=== PATIENT | male | born 1990 | race Caucasian/White ===

== ENCOUNTER 2017-12-21 06:51 | Emergency (ER) | payer MEDICAID ==
[~2017-12-21] VITALS: Ht 175.3 cm; Wt 86.4 kg
[~2017-12-21 06:51] MED LIST: HYDR-569 PO; NAPR-1166 PO; NO HOME MEDS; ONDA4TAB12 PO; ONDA8TAB6 PO; PER10325T PO; POLY119P2 PO
[2017-12-21] MEDS ORDERED: SULF1TAB49 PO (07:02)
[2017-12-21] MEDS ORDERED: ONDA4TAB9 PO (07:02)
[2017-12-21] MEDS ORDERED: HYDR28CR14 TOP (07:02)
[2017-12-21 07:17] VITALS: BP 139/80
== END 2017-12-21 07:19 | disposition home or self-care (01) ==
LOC: ER 06:51
DX: R21 Rash and other nonspecific skin eruption (principal); I10 Essential (primary) hypertension; Z90.49 Acquired absence of other specified parts of digestive tract; Z98.890 Other specified postprocedural states; Z79.2 Long term (current) use of antibiotics; Z79.899 Other long term (current) drug therapy
CPT/HCPCS: 99283

== ENCOUNTER 2019-04-21 13:11 | Emergency (ER) | payer MEDICAID ==
[~2019-04-21] VITALS: Ht 175.3 cm; Wt 94.1 kg
[~2019-04-21 13:11] MED LIST changes: +HYDR-4383 PO; -HYDR-569 PO; +HYDR28CR14 TOP
[2019-04-21] MEDS ORDERED: normal saline 1000ML IV soln IVB ONE (14:55)
[2019-04-21] MEDS ORDERED: famotidine/PF 10 mg/ml inj IV ONE (14:55)
[2019-04-21] MEDS ORDERED: ondansetron/PF 4mg/2ml inj IV ONE (14:55)
[2019-04-21 15:16] LABS: BASOPHILS # (AUTO) 0.1 X10'3 (0-0.2); BASOPHILS % (AUTO) 0.6 % (0-1); EOSINOPHILS # (AUTO) 0.1 X10'3 (0-0.9); EOSINOPHILS % (AUTO) 0.8 % (0-6); HEMATOCRIT 49.2 % (42.0-52.0); HEMOGLOBIN 16.9 g/dl (14.0-17.9); LYMPHOCYTES # (AUTO) 1.4 X10'3 (1.1-4.8); LYMPHOCYTES % (AUTO) 10.2 % (21-51); MEAN CORPUSCULAR HEMOGLOBIN 29.4 PG (27.0-31.0); MEAN CORPUSCULAR HGB CONC 34.3 g/dL (33.0-36.5); MEAN CORPUSCULAR VOLUME 85.7 FL (78-98); MEAN PLATELET VOLUME 7.4 FL (7.4-10.4); MONOCYTES % (AUTO) 7.3 % (2-12); NEUTROPHILS # (AUTO) 10.8 X10'3 (1.8-7.7); NEUTROPHILS % (AUTO) 81.1 % (42-75); PLATELET COUNT 350 X10'3 (140-440); RED BLOOD COUNT 5.74 X10'6 (4.70-6.10); RED CELL DISTRIBUTION WIDTH 12.5 % (11.5-14.5); WHITE BLOOD COUNT 13.4 X10'3 (4.5-11.0)
[2019-04-21 15:34] LABS: ALANINE AMINOTRANSFERASE 43 U/L (12-78); ALBUMIN 4.7 G/DL (3.4-5.0); ALBUMIN/GLOBULIN RATIO 1.3 (1.1-1.5); ALKALINE PHOSPHATASE 67 IU/L (46-116); ANION GAP 14 (8-16); ASPARTATE AMINO TRANSFERASE 22 U/L (10-37); BILIRUBIN,TOTAL 0.4 MG/DL (0.1-1.0); BLOOD UREA NITROGEN 14 MG/DL (7-18); BUN/CREATININE RATIO 14.6 (5.4-32.0); CALCIUM 10.3 MG/DL (8.5-10.1); CHLORIDE 106 MMOL/L (99-107); CREATININE 0.96 MG/DL (0.60-1.10); GLUCOSE 104 MG/DL (70-104); LIPASE 125 U/L (73-393); SODIUM 144 MMOL/L (135-145); TOTAL CARBON DIOXIDE 24.1 MMOL/L (24-32); TOTAL PROTEIN 8.4 G/DL (6.4-8.2); eGFR > 90 ML/MIN
[2019-04-21] MEDS ORDERED: ONDA4TAB6 PO (15:41)
[2019-04-21] MEDS ORDERED: PANT-47 PO (15:41)
[2019-04-21] MEDS ORDERED: ketorolac trometh. 30mg/ml inj. IV ONE (16:25)
[2019-04-21 16:32] VITALS: BP 135/92
== END 2019-04-21 16:39 | disposition home or self-care (01) ==
LOC: ER 13:11
DX: A08.4 Viral intestinal infection, unspecified (principal); R11.2 Nausea with vomiting, unspecified; I10 Essential (primary) hypertension; F12.90 Cannabis use, unspecified, uncomplicated; Z90.49 Acquired absence of other specified parts of digestive tract; Z98.890 Other specified postprocedural states; Z79.899 Other long term (current) drug therapy
CPT/HCPCS: 36415; 80053; 83690; 85025; 96361; 96374; 96375; 99283; J1885; J2405; J3490; J7030